=== PATIENT | female | born 1955 | race American Indian/Alaskan Native ===

== ENCOUNTER 2019-09-13 10:01 | Emergency (ER) | payer BC ==
--- NOTE | 2019-09-13 10:22 | Emergency Department Report ---
HPI - General Time Seen by Provider: 09/13/19 10:06 - HPI HPI: This is a 63-year-old -[place] female presents to the emergency department via EMS from [facility] with a complaint of a possible syncopal episode. The stories differ between the patient, reports from EMS, etc. the patient is not very forthcoming with information and just says that she has seen too many doctors and "just to do what you need to do." 1 report was that there was a witnessed syncopal episode just prior to presentation. The patient was placed on a monitor and appeared to have some PACs or PVCs until she was given some supplemental oxygen. She is not currently on any supplemental oxygen. Another report was that the patient began having some chest pain and then laid down on the ground and was unresponsive. She appears to have a history of hypertension. She is currently being seen at [facility] for paranoia and suicidal ideations. Her list of medications inclu trinity meds for hypertension and psychiatric meds. ED Review of Systems ROS: Stated complaint: SUE Other details as noted in HPI Comment: All other systems reviewed and negative Constitutional: denies: fever Eyes: denies: eye pain, vision change Respiratory: denies: cough, shortness of breath Cardiovascular: chest pain (questionable), syncope Gastrointestinal: denies: abdominal pain, vomiting Musculoskeletal: denies: back pain, arthralgia Neurological: denies: headache, weakness Psychiatric: suicidal thoughts Physical Exam - Physical Exam Physical Exam: GENERAL: The patient is well-developed well-nourished. HENT: Normocephalic. Atraumatic. Patient has moist mucous membranes. EYES: Extraocular motions are intact. NECK: Supple. Trachea is midline. CHEST/LUNGS: Clear to auscultation. There is no respiratory distress noted. HEART/CARDIOVASCULAR: Regular. There is no tachycardia. There is no murmur. ABDOMEN: Abdomen is soft, nontender. Patient has normal bowel sounds. SKIN: Skin is warm and dry. NEURO: The patient is awake, alert. The patient has no focal neurologic deficits. Normal speech. MUSCULOSKELETAL: There is no tenderness or deformity. There is no evidence of acute injury. ED Medical Decision Making - Lab Data Result diagrams: 09/13/19 11:38 09/13/19 10:46 - EKG Data -: EKG Interpreted by Me EKG shows normal: sinus rhythm (Ventricular trigeminy), axis (Left axis deviation), intervals, QRS complexes (LVH), ST-T waves Rate: normal - EKG Data When compared to previous EKG there are: previous EKG unavailable Interpretation: other (Sinus rhythm at 99 bpm, left axis deviation, ventricular trigeminy, LVH) - Radiology Data Radiology results: report reviewed, image reviewed interpreted by me: Chest x-ray does not show any acute process. There are no pleural effusions, obvious pneumonia and there is no pneumothorax. CT head/brain wo con INDICATION: Syncope. TECHNIQUE: Routine CT head. All CT scans at this location are performed using CT dose reduction for ALARA by means of automated exposure control. COMPARISON: None. FINDINGS: Intracranial: Mijares- white matter differentiation is maintained. No intracranial hemorrhage. No extra axial collection.. No hydrocephalus. No herniation. 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 Sinuses: Paranasal sinuses and mastoid air cells are essentially clear. Orbits: Globes are intact. Calvarium: No acute fracture. IMPRESSION: 1. No acute intracranial abnormality. CTA CHEST WITH CONTRAST INDICATION : Syncope, elevated dimer. TECHNIQUE: Axial imaging performed through the chest, with contrast bolus timing set to maximize opacification of the pulmonary arteries. Sagittal and coronal reformatted images. 3-plane MIP reformatted images were obtained. All CT scans at this location are performed using CT dose reduction for ALARA by means of automated exposure control. 100 mL of intravenous contrast administered. COMPARISON: None FINDINGS: Bolus: Contrast bolus is limited. Most of the IV contrast is present within the aorta. PTE: No central pulmonary embolus is detected. There is poor opacification of the distal small pulmonary arteries which limits this exam. No gross PE is identified. Aorta: The thoracic aorta is mildly ectatic and dilated. No focal aneurysm or dissection. Mediastinum: Heart and great vessels appear normal. No pathologic mediastinal adenopathy. Lungs: The lungs are clear with no evidence for infiltrate, pleural effusion or pneumothorax. Bones: Degenerative changes in the spine with nothing acute. Upper abdomen: Limited imaging of the upper abdomen shows nothing acute. IMPRESSION: Slightly limited exam. No large central pulmonary embolus is identified. Ectatic aorta. Lungs clear. - Medical Decision Making This patient presents to the emergency department after having a syncopal episode at the psychiatric facility. The patient is awake and alert upon my initial evaluation. However the patient did require some Geodon and Ativan in order to complete her evaluation as the patient became agitated. EKG did not show any morphology consistent with an ST elevation myocardial infarction. Chest x-ray did not show any acute process. Patient's labs were mostly unremarkable except for an elevated d-dimer level. For this reason a CT angiog jose of the chest was completed that did not show any evidence of a pulmonary embolism. CT of the head without contrast also did not show any bleed, shift, mass, ischemia, or any acute process. Patient's vital signs were reassuring throughout her ED course. She was reevaluated multiple times and there has been no further syncopal episodes, complaint of chest pain, or any other acute process is seen. She will be discharged back to the psychiatric facility and will return to the ER with any worsening of her symptoms or with any acute distress. It should be noted that the last heart rate listed appears erroneous. This patient was re-evaluated by me and heart rate was within normal limits just prior to transportation. That heart rate listing is secondary to the patient transferring to the [facility] for transport. Critical Care Time: No Critical care attestation.: If time is entered above; I have spent that time in minutes in the direct care of this critically ill patient, excluding procedure time. ED Disposition Clinical Impression: Medical clearance for psychiatric admission Syncope Qualifiers: Syncope type: unspecified Qualified Code(s): R55 - Syncope and collapse Disposition: DC-01 TO HOME OR SELFCARE Is pt being admited?: No Condition: Stable Instructions: Syncope (ED) Additional Instructions: Please follow-up with your primary care physician as soon as you are able to do so and done with your psychiatric treatment/evaluation. Return to the emergency department immediately with any further episodes of passing out, worsening of your symptoms, or with any acute distress. Referrals: JAY GUERRERO MD [Primary Care Provider] - 3-5 Days Time of Disposition: 15:57
[2019-09-13] MEDS ORDERED: ZIPRASIDONE MESYLATE 20 MG VIAL IM ONE (10:37)
[2019-09-13] MEDS ORDERED: LORazepam 2 MG/ML VIAL ONE (10:42)
[2019-09-13] MEDS ORDERED: LORazepam 2 MG/ML VIAL IV PRN (10:52)
--- NOTE | 2019-09-13 11:46 | XRay Report ---
CHEST 1 VIEW INDICATION: Chest pain. COMPARISON: None FINDINGS: Support devices: None. Heart: Within normal limits. Lungs/Pleura: No acute air space or interstitial disease. Additional findings: None. IMPRESSION: No acute findings. Signer Name: Ari Kenny Jr, MD Signed: 09/13/2019 11:41 AM Workstation Name: [id number]
[2019-09-13 11:55] LABS: Alanine Aminotransferase 17 units/L (7-56); Albumin 4.5 g/dL (3.9-5); BUN/Creatinine Ratio 27; Blood Urea Nitrogen 24 mg/dL (7-17); Calcium 9.6 mg/dL (8.4-10.2); Hemolysis Index 18
[2019-09-13 11:57] LABS: Hematocrit 34.9 % (30.3-42.9); Mean Corpuscular HGB Conc 34 % (30-34); Mean Corpuscular Volume 96 fl (79-97); Platelet Count 261 K/mm3 (140-440); Red Blood Count 3.63 M/mm3 (3.65-5.03); Red Cell Distribution Width 13.5 % (13.2-15.2)
[2019-09-13 11:59] LABS: Basophils % (Auto) 0.5 % (0.0-1.8); Eosinophils % (Auto) 0.2 % (0.0-4.3); Lymphocytes # (Auto) 1.1 K/mm3 (1.2-5.4); Lymphocytes % (Auto) 19.3 % (13.4-35.0); Monocytes # (Auto) 0.4 K/mm3 (0.0-0.8); Monocytes % (Auto) 6.5 % (0.0-7.3)
--- NOTE | 2019-09-13 15:24 | Cat Scan Report ---
CTA CHEST WITH CONTRAST INDICATION : Syncope, elevated dimer. TECHNIQUE: Axial imaging performed through the chest, with contrast bolus timing set to maximize opa cification of the pulmonary arteries. Sagittal and coronal reformatted images. 3-plane MIP reformatte d images were obtained. All CT scans at this location are performed using CT dose reduction for ALAR A by means of automated exposure control. 100 mL of intravenous contrast administered. COMPARISON: None FINDINGS: Bolus: Contrast bolus is limited. Most of the IV contrast is present within the aorta. PTE: No central pulmonary embolus is detected. There is poor opacification of the distal small pulmo nary arteries which limits this exam. No gross PE is identified. Aorta: The thoracic aorta is mildly ectatic and dilated. No focal aneurysm or dissection. Mediastinum: Heart and great vessels appear normal. No pathologic mediastinal adenopathy. Lungs: The lungs are clear with no evidence for infiltrate, pleural effusion or pneumothorax. Bones: Degenerative changes in the spine with nothing acute. Upper abdomen: Limited imaging of the upper abdomen shows nothing acute. IMPRESSION: Slightly limited exam. No large central pulmonary embolus is identified. Ectatic aorta. Lungs clear. Signer Name: Ari Kenny Jr, MD Signed: 09/13/2019 3:20 PM Workstation Name: [id number]
--- NOTE | 2019-09-13 15:25 | Cat Scan Report ---
CT head/brain wo con INDICATION: Syncope. TECHNIQUE: Routine CT head. All CT scans at this location are performed using CT dose reduction for A ROBERT by means of automated exposure control. COMPARISON: None. FINDINGS: Intracranial: Mijares-white matter differentiation is maintained. No intracranial hemorrhage. No extra a xial collection.. No hydrocephalus. No herniation. Postoperative changes from aneurysm clipping in th e left P-comm region. Sinuses: Paranasal sinuses and mastoid air cells are essentially clear. Orbits: Globes are intact. Calvarium: No acute fracture. IMPRESSION: 1. No acute intracranial abnormality. Signer Name: Felipe Mcrae MD Signed: 09/13/2019 3:20 PM Workstation Name: [id number]
[2019-09-13 18:43] VITALS: BP 142/88
== END 2019-09-13 18:15 | disposition home or self-care (01) ==
LOC: ED 10:01
DX: R55 Syncope and collapse (principal)
CPT/HCPCS: 36415; 70450; 71045; 71275; 80053; 84443; 84484; 85025; 85379; 93005; J2060; J3486; Q9967; 96372